=== PATIENT | male | born 1960 | race Caucasian/White ===

== ENCOUNTER → 2025-01-27 08:53 | Outpatient (REF) | payer BC, SELFPAY | LOC: RCS 08:53 | PROVIDERS: ATTENDING PHYSICIAN Internal Medicine Cardiovascular Disease; FAMILY PHYSICIAN Family Medicine | DX: I48.21 Permanent atrial fibrillation (principal); I77.810 Thoracic aortic ectasia | CPT/HCPCS: 93306 ==